=== PATIENT | male | born 1960 | race Two or more races ===

== ENCOUNTER 2020-05-13 13:41 | Emergency (ER) | payer OTHER ==
[~2020-05-13] VITALS: Ht 177.8 cm; Wt 108.9 kg
[2020-05-13] MEDS ORDERED: CIPRO500 MG PO (16:25)
[2020-05-13] MEDS ORDERED: VOLTAREN-XR100 MG PO (16:25)
== END 2020-05-13 17:45 | disposition home or self-care (01) ==
LOC: ER 13:41
DX: S52.592A Other fractures of lower end of left radius, initial encounter for closed fracture (principal); W18.39XA Other fall on same level, initial encounter; Y93.89 Activity, other specified; Y92.098 Other place in other non-institutional residence as the place of occurrence of the external cause; Y99.8 Other external cause status

== ENCOUNTER 2020-05-21 07:07 | Day surgery (SDC) | payer OTHER ==
[~2020-05-21 07:07] MED LIST: CIPRO500 MG PO; VOLTAREN-XR100 MG PO
== END 2020-05-21 17:50 | disposition home or self-care (01) ==
LOC: CIR.AMB 07:07
PROVIDERS: ATTEND Orthopaedic Surgery Hand Surgery
DX: S52.532A Colles' fracture of left radius, initial encounter for closed fracture (principal); Z20.822 Contact with and (suspected) exposure to COVID-19